=== PATIENT | male | born 1965 | race Caucasian/White ===

== ENCOUNTER 2021-04-07 23:23 | Observation (INO) | payer SELFPAY ==
[2021-04-08] MEDS ORDERED: Nitroglycerin 2% Ointment 1 INCH/1 GM Packet ONE (00:05)
[2021-04-08 00:18] LABS: #Eosinphils 0.2 10x3/uL (0.0-0.5); #Monocytes 0.4 10x3/uL (0.0-1.1); #Neutrophils 2.9 10x3/uL (1.5-8.4); %Basophils 0.2 % (0.0-2.0); %Eosinophils 3.1 % (0.0-6.0); %Lymphocytes 32.4 % (18.0-47.0); %Monocytes 7.6 % (0.0-10.0); %Neutrophils 55.5 % (40.0-75.0); Hemoglobin 12.8 g/dL (13.5-17.5); Mean Corpuscular HGB CONC 33.4 g/dL (32.0-36.0); Mean Corpuscular Hemoglobin 30.2 pg (27.0-33.0); Mean Corpuscular Volume 90.3 fl (81.2-95.1); Mean Platelet Volume 10.9 fl (7.4-10.4); Platelet Count 142 10x3/uL (150-450); RBC Distribution Width 14.8 % (11.5-14.5); Red Blood Cell (RBC) Count 4.24 10x6/uL (4.32-5.72); White Blood Cell (WBC) Count 5.2 10x3/uL (3.5-10.5)
[2021-04-08 00:22] LABS: ALT (SGPT) 22 U/L (8-55); AST (SGOT) 17 U/L (5-34); Albumin 4.2 g/dL (3.5-5.0); Alkaline Phosphatase 59 U/L (40-110); Anion Gap 16 mmol/L (10-20); BUN (Urea Nitrogen) 13 mg/dL (8.4-25.7); Bilirubin, Total 0.6 mg/dL (0.2-1.2); Calc. Creatinine Clearance 0 mL/min (70-130); Calcium 9.3 mg/dL (7.8-10.44); Carbon Dioxide 21 mmol/L (22-29); Chloride 104 mmol/L (98-107); Globulin 2.8 g/dL (2.4-3.5); Potassium 4.4 mmol/L (3.5-5.1); Sodium 137 mmol/L (136-145)
[2021-04-08 00:34] LABS: Glucose 585 mg/dL (70-105)
[2021-04-08] MEDS ORDERED: Insulin Regular 300 UNITS/3 ML VIAL ONE (00:42)
[2021-04-08] MEDS ORDERED: Morphine 4 MG/ML VIAL ONE (00:42)
[2021-04-08] MEDS ORDERED: Acetaminophen 325 MG TAB PO PRN (01:32)
[2021-04-08] MEDS ORDERED: Nitroglycerin 0.4 MG TAB (25 Tab Bottle) SL PRN (01:32)
[2021-04-08] MEDS ORDERED: Calcium Carbonate 500 MG ChewTAB PO PRN (01:32)
[2021-04-08] MEDS ORDERED: Dextrose 5% in Water 1,000 ML IV PRN (01:32)
[2021-04-08] MEDS ORDERED: Dextrose 50% Abboject 50 ML SYRINGE SLOW IVP PRN (01:32)
[2021-04-08] MEDS ORDERED: HumaLOG 300 UNITS/3 ML VIAL SC PRN (01:32)
[2021-04-08] MEDS ORDERED: Zolpidem Tartrate 5 MG TAB PO PRN (01:32)
[2021-04-08] MEDS ORDERED: Ondansetron PF 4 MG/2 ML Vial IVP PRN (01:32)
[2021-04-08] MEDS ORDERED: Senokot S 8.6-50 MG TAB PO PRN (01:32)
[2021-04-08 03:24] VITALS: BMI 36.9
[2021-04-08] MEDS: HYDROcodone/Acetaminophen 5/325 mg Tablet PO PRN ×2 (04:49→09:09)
[2021-04-08 05:44] LABS: Cardiac Risk 3.3 (Less than 4.5)
[2021-04-08 05:50] LABS: Troponin I Less than 0.010 ng/mL (< 0.028)
[2021-04-08] MEDS ORDERED: metFORMIN 500 MG TAB PO SCH (08:00)
[2021-04-08] MEDS ORDERED: Carvedilol 6.25 MG TAB PO SCH (08:00)
[2021-04-08 08:36] LABS: Troponin I Less than 0.010 ng/mL (< 0.028)
[2021-04-08] MEDS ORDERED: Aspirin Chewable 81 MG TAB PO SCH (09:00)
[2021-04-08] MEDS ORDERED: Enoxaparin Sodium 40 MG/0.4 ML SYRINGE SC SCH (09:00)
[2021-04-08] MEDS ORDERED: Lisinopril 2.5 MG TAB PO SCH (09:00)
[2021-04-08] MEDS ORDERED: Clopidogrel Bisulfate 75 MG TAB PO SCH (09:00)
[2021-04-08] MEDS ORDERED: Lantus 1000 UNITS/10 ML VIAL SC SCH (09:00)
[2021-04-08 12:37] VITALS: BP 108/102; TEMP 97.1
[2021-04-08 14:25] LABS: Hemoglobin A1c 9.5 % (4.0-6.0)
[2021-04-08] MEDS ORDERED: Atorvastatin Calcium 40 MG TAB PO SCH (21:00)
== END 2021-04-08 14:00 | disposition left against medical advice (07) ==
LOC: CSHERS 23:23 → CSHTELE 04-08 02:27
PROVIDERS: ADMIT Student in an Organized Health Care Education/Training Program; ATTEND Student in an Organized Health Care Education/Training Program
DX: R07.2 Precordial pain (principal); E11.65 Type 2 diabetes mellitus with hyperglycemia; E11.22 Type 2 diabetes mellitus with diabetic chronic kidney disease; I13.10 Hypertensive heart and chronic kidney disease without heart failure, with stage 1 through stage 4 chronic kidney disease, or unspecified chronic kidney disease; N18.2 Chronic kidney disease, stage 2 (mild); Z95.5 Presence of coronary angioplasty implant and graft; E78.5 Hyperlipidemia, unspecified; G47.33 Obstructive sleep apnea (adult) (pediatric); Z85.71 Personal history of Hodgkin lymphoma; Z82.49 Family history of ischemic heart disease and other diseases of the circulatory system; Z53.29 Procedure and treatment not carried out because of patient's decision for other reasons; Z79.02 Long term (current) use of antithrombotics/antiplatelets; Z79.4 Long term (current) use of insulin; Z79.82 Long term (current) use of aspirin; Z79.899 Other long term (current) drug therapy; Z88.2 Allergy status to sulfonamides; Z88.8 Allergy status to other drugs, medicaments and biological substances
CPT/HCPCS: 36415; 36416; 71045; 80053; 80061; 83036; 83880; 84484; 85025; 85379; 93005; 93306; 94760; 96372; 96374; G0378; J1650; J1815; J2270

== ENCOUNTER 2021-04-08 23:29 | Observation (INO) | payer SELFPAY ==
[2021-04-08] MEDS ORDERED: Aspirin Chewable 81 MG TAB ONE (23:43)
[2021-04-08] MEDS ORDERED: Nitroglycerin 2% Ointment 1 INCH/1 GM Packet ONE (23:48)
[2021-04-08 23:55] LABS: #Eosinphils 0.2 10x3/uL (0.0-0.5); #Monocytes 0.6 10x3/uL (0.0-1.1); #Neutrophils 3.8 10x3/uL (1.5-8.4); %Basophils 0.2 % (0.0-2.0); %Eosinophils 2.6 % (0.0-6.0); %Lymphocytes 25.9 % (18.0-47.0); %Monocytes 9.1 % (0.0-10.0); %Neutrophils 61.7 % (40.0-75.0); Hemoglobin 12.9 g/dL (13.5-17.5); Mean Corpuscular HGB CONC 33.6 g/dL (32.0-36.0); Mean Corpuscular Hemoglobin 30.3 pg (27.0-33.0); Mean Corpuscular Volume 90.1 fl (81.2-95.1); Mean Platelet Volume 10.8 fl (7.4-10.4); Platelet Count 149 10x3/uL (150-450); RBC Distribution Width 14.7 % (11.5-14.5); Red Blood Cell (RBC) Count 4.26 10x6/uL (4.32-5.72); White Blood Cell (WBC) Count 6.2 10x3/uL (3.5-10.5)
[2021-04-09 00:14] LABS: ALT (SGPT) 22 U/L (8-55); AST (SGOT) 13 U/L (5-34); Albumin 4.2 g/dL (3.5-5.0); Alkaline Phosphatase 57 U/L (40-110); Anion Gap 16 mmol/L (10-20); BUN (Urea Nitrogen) 13 mg/dL (8.4-25.7); Bilirubin, Total 0.7 mg/dL (0.2-1.2); Calc. Creatinine Clearance 0 mL/min (70-130); Calcium 9.2 mg/dL (7.8-10.44); Carbon Dioxide 22 mmol/L (22-29); Chloride 103 mmol/L (98-107); Globulin 2.5 g/dL (2.4-3.5); Glucose 520 mg/dL (70-105); Protein, Total 6.7 g/dL (6.0-8.3); Sodium 137 mmol/L (136-145)
[2021-04-09] MEDS ORDERED: Enoxaparin Sodium 100 MG/ML SYRINGE ONE (00:15)
[2021-04-09] MEDS ORDERED: Morphine 4 MG/ML VIAL ONE (00:15)
[2021-04-09] MEDS ORDERED: Enoxaparin Sodium 30 MG/0.3 ML SYRINGE ONE (00:17)
[2021-04-09] MEDS ORDERED: Insulin Regular 300 UNITS/3 ML VIAL ONE (00:33)
[2021-04-09] MEDS ORDERED: Dextrose 50% Abboject 50 ML SYRINGE SLOW IVP PRN (00:37)
[2021-04-09] MEDS ORDERED: Zolpidem Tartrate 5 MG TAB PO PRN (00:37)
[2021-04-09] MEDS ORDERED: Calcium Carbonate 500 MG ChewTAB PO PRN (00:37)
[2021-04-09] MEDS ORDERED: HYDROcodone/Acetaminophen 5/325 mg Tablet PO PRN (00:37)
[2021-04-09] MEDS ORDERED: Guaifenesin DM 100-10/5 ML UDCUP PO PRN (00:37)
[2021-04-09] MEDS ORDERED: Ondansetron PF 4 MG/2 ML Vial IVP PRN (00:37)
[2021-04-09] MEDS ORDERED: HumaLOG 300 UNITS/3 ML VIAL SC PRN (00:37)
[2021-04-09] MEDS ORDERED: Dextrose 5% in Water 1,000 ML IV PRN (00:37)
[2021-04-09] MEDS ORDERED: Acetaminophen 325 MG TAB PO PRN (00:37)
[2021-04-09] MEDS ORDERED: Senokot S 8.6-50 MG TAB PO PRN (00:37)
[2021-04-09] MEDS ORDERED: Sodium Chloride 0.9% 1,000 ML IV SCH (02:00)
[2021-04-09 04:36] LABS: Anion Gap 14 mmol/L (10-20); BUN (Urea Nitrogen) 12 mg/dL (8.4-25.7); Calc. Creatinine Clearance 0 mL/min (70-130); Carbon Dioxide 23 mmol/L (22-29); Chloride 104 mmol/L (98-107); Glucose 454 mg/dL (70-105); Potassium 4.1 mmol/L (3.5-5.1); Sodium 137 mmol/L (136-145)
[2021-04-09 05:12] VITALS: BMI 36.9
[2021-04-09] MEDS: Nitroglycerin 0.4 MG TAB (25 Tab Bottle) SL PRN ×3 (05:25→05:35)
[2021-04-09] MEDS ORDERED: metFORMIN 500 MG TAB PO SCH (08:00)
[2021-04-09] MEDS ORDERED: Communication Order-Pharmacy FS SCH (08:00)
[2021-04-09] MEDS: Clopidogrel Bisulfate 75 MG TAB PO SCH (08:39)
[2021-04-09] MEDS: Metoprolol Tartrate 25 MG TAB PO SCH ×2 (08:42→20:49)
[2021-04-09] MEDS: Aspirin Chewable 81 MG TAB PO SCH (08:42)
[2021-04-09] MEDS: Famotidine/PF 20 mg/2ml Vial SLOW IVP SCH ×2 (08:42→20:49)
[2021-04-09] MEDS: Lisinopril 5 MG TAB PO SCH (08:42)
[2021-04-09 08:43] LABS: #Eosinphils 0.1 10x3/uL (0.0-0.5); #Monocytes 0.5 10x3/uL (0.0-1.1); #Neutrophils 2.4 10x3/uL (1.5-8.4); %Basophils 0.2 % (0.0-2.0); %Lymphocytes 34.3 % (18.0-47.0); %Monocytes 10.1 % (0.0-10.0); Hemoglobin 11.6 g/dL (13.5-17.5); Mean Corpuscular Hemoglobin 30.5 pg (27.0-33.0); Mean Corpuscular Volume 89.7 fl (81.2-95.1); Mean Platelet Volume 10.5 fl (7.4-10.4); Platelet Count 137 10x3/uL (150-450); RBC Distribution Width 14.6 % (11.5-14.5); White Blood Cell (WBC) Count 4.6 10x3/uL (3.5-10.5)
[2021-04-09 08:52] LABS: PTT 27.6 sec (22.0-33.0)
[2021-04-09] MEDS ORDERED: Lantus 1000 UNITS/10 ML VIAL SC SCH (09:00)
[2021-04-09] MEDS ORDERED: Heparin 10,000 UNITS/ 10 ML VIAL ONE (11:10)
[2021-04-09] MEDS ORDERED: Nitroglycerin 50 MG/250 ML BOT 250 ML ONE (11:10)
[2021-04-09] MEDS ORDERED: Verapamil 5 MG/2 ML VIAL ONE (11:11)
[2021-04-09] MEDS ORDERED: Adenosine 6 MG/2 ML VIAL ONE (11:11)
[2021-04-09] MEDS ORDERED: Bivalirudin 250 MG VIAL ONE (11:12)
[2021-04-09] MEDS ORDERED: Sodium Chloride 0.9% 1,000 ML ONE (11:12)
[2021-04-09] MEDS ORDERED: Lidocaine 1% PF 5 ML VIAL ONE (11:25)
[2021-04-09] MEDS ORDERED: Fentanyl 100 MCG/2 ML VIAL ONE ×2 (11:29→11:54)
[2021-04-09] MEDS ORDERED: Midazolam HCl 2 mg/2 ml Vial ONE ×2 (11:29→11:54)
[2021-04-09 11:56] LABS: Troponin I Less than 0.010 ng/mL (< 0.028)
[2021-04-09] MEDS ORDERED: Acetaminophen/Codeine 30-300mg Tablet PO PRN ×2 (12:24)
[2021-04-09] MEDS ORDERED: Sodium Chloride 0.9% 200 ML IV PRN (12:24)
[2021-04-09] MEDS ORDERED: Nitroglycerin 0.4 MG TAB (25 Tab Bottle) SL PRN (12:24)
[2021-04-09] MEDS: HumaLOG 300 UNITS/3 ML VIAL SC SCH ×2 (17:04→20:49)
[2021-04-09] MEDS ORDERED: Enoxaparin Sodium 40 MG/0.4 ML SYRINGE SC SCH (21:00)
[2021-04-09] MEDS ORDERED: Atorvastatin Calcium 40 MG TAB PO SCH (21:00)
[2021-04-10 04:52] LABS: Cardiac Risk 4.1 (Less than 4.5)
[2021-04-10] MEDS: Lisinopril 5 MG TAB PO SCH (09:52)
[2021-04-10] MEDS: Metoprolol Tartrate 25 MG TAB PO SCH (09:52)
[2021-04-10] MEDS: Famotidine/PF 20 mg/2ml Vial SLOW IVP SCH ×2 (09:52→13:50)
[2021-04-10] MEDS: Aspirin Chewable 81 MG TAB PO SCH (09:52)
[2021-04-10] MEDS: Clopidogrel Bisulfate 75 MG TAB PO SCH (09:52)
[2021-04-10] MEDS: HumaLOG 300 UNITS/3 ML VIAL SC SCH (09:54)
[2021-04-10 13:52] VITALS: BP 141/78; TEMP 97.1
== END 2021-04-10 13:53 | disposition home or self-care (01) ==
LOC: CSHERS 23:29 → CSHTELE 23:30
PROVIDERS: ADMIT Student in an Organized Health Care Education/Training Program; ATTEND Family Medicine
DX: R07.9 Chest pain, unspecified (principal); I25.110 Atherosclerotic heart disease of native coronary artery with unstable angina pectoris; G47.33 Obstructive sleep apnea (adult) (pediatric); E11.22 Type 2 diabetes mellitus with diabetic chronic kidney disease; I12.9 Hypertensive chronic kidney disease with stage 1 through stage 4 chronic kidney disease, or unspecified chronic kidney disease; N18.2 Chronic kidney disease, stage 2 (mild); Z95.5 Presence of coronary angioplasty implant and graft; E66.01 Morbid (severe) obesity due to excess calories; E11.65 Type 2 diabetes mellitus with hyperglycemia; Z79.899 Other long term (current) drug therapy; I45.10 Unspecified right bundle-branch block; Z85.71 Personal history of Hodgkin lymphoma
CPT/HCPCS: 36415; 36416; 71045; 80048; 80053; 80061; 84484; 85025; 85610; 85730; 93005; 93458; 94660; 96372; 96374; 96375; 96376; 99152; G0378; J0153; J0583; J1644; J1650; J1815; J2250; J2270; J3010; J7050; S0028

== ENCOUNTER 2021-04-16 15:47 | Observation (INO) | payer OTHER, SELFPAY ==
[2021-04-16 16:03] VITALS: BMI 38.0
[2021-04-16] MEDS ORDERED: Nitroglycerin 0.4 MG TAB (25 Tab Bottle) SL PRN (19:11)
[2021-04-16] MEDS ORDERED: Dextrose 5% in Water 1,000 ML IV PRN (19:12)
[2021-04-16] MEDS ORDERED: Dextrose 50% Abboject 50 ML SYRINGE SLOW IVP PRN (19:12)
[2021-04-16] MEDS: HumaLOG 300 UNITS/3 ML VIAL SC PRN (19:52)
[2021-04-16] MEDS ORDERED: Atorvastatin Calcium 20 MG TAB PO SCH (21:00)
[2021-04-16] MEDS ORDERED: Diazepam 2 MG TAB PO SCH (21:00)
[2021-04-16] MEDS ORDERED: QUETIAPINE FUMARATE 400 MG PO SCH (21:00)
[2021-04-16] MEDS ORDERED: Diazepam 5 MG TAB PO SCH (21:00)
[2021-04-16] MEDS: Divalproex Sodium DR 500 MG TAB PO SCH (21:31)
[2021-04-17] MEDS: HumaLOG 300 UNITS/3 ML VIAL SC PRN ×2 (05:43→12:27)
[2021-04-17] MEDS: Divalproex Sodium DR 500 MG TAB PO SCH (08:32)
[2021-04-17] MEDS ORDERED: Aspirin Chewable 81 MG TAB PO SCH (09:00)
[2021-04-17] MEDS ORDERED: Lisinopril 5 MG TAB PO SCH (09:00)
[2021-04-17] MEDS ORDERED: Bupropion 100 MG SR TAB PO SCH (09:00)
[2021-04-17] MEDS ORDERED: Furosemide 40 MG TAB PO SCH (09:00)
[2021-04-17] MEDS ORDERED: FLUoxetine HCl 20 MG CAP PO SCH (09:00)
[2021-04-17] MEDS ORDERED: Pantoprazole 40 MG VIAL IVP SCH (09:00)
[2021-04-17 12:26] VITALS: BP 115/55; TEMP 97.6
== END 2021-04-17 13:35 | disposition home or self-care (01) ==
LOC: CSHTELE 15:47
PROVIDERS: ADMIT Family Medicine; ATTEND Internal Medicine
DX: R07.89 Other chest pain (principal); I10 Essential (primary) hypertension; E66.9 Obesity, unspecified; Z79.899 Other long term (current) drug therapy; G47.33 Obstructive sleep apnea (adult) (pediatric); E11.9 Type 2 diabetes mellitus without complications; F32.A Depression, unspecified; E78.5 Hyperlipidemia, unspecified
CPT/HCPCS: 36416; 94660; C9113; G0378; J1815

== ENCOUNTER 2021-05-11 23:04 | Emergency (ER) | payer OTHER ==
[2021-05-12 00:39] LABS: #Eosinphils 0.1 10x3/uL (0.0-0.5); #Monocytes 0.5 10x3/uL (0.0-1.1); %Basophils 0.4 % (0.0-2.0); %Eosinophils 2.1 % (0.0-6.0); %Lymphocytes 31.8 % (18.0-47.0); %Neutrophils 56.3 % (40.0-75.0); Hemoglobin 12.5 g/dL (13.5-17.5); Mean Corpuscular HGB CONC 34.1 g/dL (32.0-36.0); Mean Corpuscular Hemoglobin 30.3 pg (27.0-33.0); Mean Corpuscular Volume 88.9 fl (81.2-95.1); Mean Platelet Volume 10.7 fl (7.4-10.4); Platelet Count 150 10x3/uL (150-450); RBC Distribution Width 14.6 % (11.5-14.5); Red Blood Cell (RBC) Count 4.13 10x6/uL (4.32-5.72); White Blood Cell (WBC) Count 5.3 10x3/uL (3.5-10.5)
[2021-05-12 00:46] LABS: ALT (SGPT) 13 U/L (8-55); AST (SGOT) 9 U/L (5-34); Albumin 4.2 g/dL (3.5-5.0); Alkaline Phosphatase 57 U/L (40-110); Anion Gap 15 mmol/L (10-20); BUN (Urea Nitrogen) 19 mg/dL (8.4-25.7); Bilirubin, Total 0.7 mg/dL (0.2-1.2); Calc. Creatinine Clearance 0 mL/min (70-130); Calcium 9.4 mg/dL (7.8-10.44); Carbon Dioxide 26 mmol/L (22-29); Chloride 100 mmol/L (98-107); Globulin 2.5 g/dL (2.4-3.5); Potassium 4.6 mmol/L (3.5-5.1); Protein, Total 6.7 g/dL (6.0-8.3); Sodium 136 mmol/L (136-145)
[2021-05-12 00:52] LABS: Glucose 585 mg/dL (70-105)
[2021-05-12] MEDS ORDERED: Nitroglycerin 2% Ointment 1 INCH/1 GM Packet ONE (00:53)
[2021-05-12] MEDS ORDERED: Aspirin Chewable 81 MG TAB ONE (00:53)
[2021-05-12 02:51] LABS: Troponin I Less than 0.010 ng/mL (< 0.028)
== END 2021-05-12 03:08 | disposition home or self-care (01) ==
LOC: CSHERS 23:04
DX: R07.9 Chest pain, unspecified (principal); I25.10 Atherosclerotic heart disease of native coronary artery without angina pectoris; E11.9 Type 2 diabetes mellitus without complications; I10 Essential (primary) hypertension; E78.5 Hyperlipidemia, unspecified
CPT/HCPCS: 36415; 71045; 80053; 84484; 85025; 93005

== ENCOUNTER 2021-10-03 00:33 | Emergency (ER) | payer BC ==
[2021-10-03] MEDS ORDERED: Aspirin Chewable 81 MG TAB ONE (01:07)
[2021-10-03] MEDS ORDERED: Acetaminophen 500 MG TAB ONE (01:08)
[2021-10-03] MEDS ORDERED: Ketorolac Tromethamine 30 MG/ML VIAL ONE ×2 (01:08→01:34)
[2021-10-03] MEDS ORDERED: Nitroglycerin 2% Ointment 1 INCH/1 GM Packet TOP SCH (01:15)
[2021-10-03 01:54] LABS: #Eosinphils 0.2 10x3/uL (0.0-0.5); #Monocytes 0.5 10x3/uL (0.0-1.1); #Neutrophils 3.4 10x3/uL (1.5-8.4); %Basophils 0.2 % (0.0-2.0); %Eosinophils 3.1 % (0.0-6.0); %Lymphocytes 29.2 % (18.0-47.0); %Monocytes 8.4 % (0.0-10.0); %Neutrophils 58.6 % (40.0-75.0); Hemoglobin 12.1 g/dL (13.5-17.5); Mean Corpuscular HGB CONC 34.9 g/dL (32.0-36.0); Mean Corpuscular Hemoglobin 30.4 pg (27.0-33.0); Mean Corpuscular Volume 87.2 fl (81.2-95.1); Mean Platelet Volume 10.3 fl (7.4-10.4); Platelet Count 149 10x3/uL (150-450); RBC Distribution Width 14.4 % (11.5-14.5); Red Blood Cell (RBC) Count 3.98 10x6/uL (4.32-5.72); White Blood Cell (WBC) Count 5.9 10x3/uL (3.5-10.5)
[2021-10-03 02:01] LABS: ALT (SGPT) 14 U/L (8-55); AST (SGOT) 11 U/L (5-34); Alkaline Phosphatase 53 U/L (40-110); Anion Gap 17 mmol/L (10-20); BUN (Urea Nitrogen) 16 mg/dL (8.4-25.7); Bilirubin, Total 0.5 mg/dL (0.2-1.2); Calc. Creatinine Clearance 0 mL/min (70-130); Calcium 9.5 mg/dL (7.8-10.44); Carbon Dioxide 23 mmol/L (22-29); Chloride 101 mmol/L (98-107); Globulin 2.6 g/dL (2.4-3.5); Glucose 386 mg/dL (70-105); Protein, Total 6.6 g/dL (6.0-8.3); Sodium 137 mmol/L (136-145)
[2021-10-03 05:35] LABS: Troponin I Less than 0.010 ng/mL (< 0.028)
== END 2021-10-03 05:54 | disposition home or self-care (01) ==
LOC: CSHERS 00:33
DX: R07.9 Chest pain, unspecified (principal); E11.9 Type 2 diabetes mellitus without complications; E78.5 Hyperlipidemia, unspecified; I10 Essential (primary) hypertension
CPT/HCPCS: 36415; 71045; 80053; 84484; 85025; 93005; 96372; J1885

== ENCOUNTER 2021-10-14 13:41 | Observation (INO) | payer BC ==
[2021-10-14] MEDS ORDERED: Morphine 2 MG/ML VIAL ONE (15:42)
[2021-10-14 15:46] LABS: Troponin I Less than 0.010 ng/mL (< 0.028)
[2021-10-14] MEDS ORDERED: Ondansetron PF 4 MG/2 ML Vial IVP PRN (15:56)
[2021-10-14] MEDS ORDERED: Senokot S 8.6-50 MG TAB PO PRN (15:56)
[2021-10-14] MEDS ORDERED: Ondansetron ODT 4 MG TAB PO PRN (15:56)
[2021-10-14] MEDS ORDERED: Nitroglycerin 0.4 MG TAB (25 Tab Bottle) SL PRN (16:02)
[2021-10-14 16:30] VITALS: BMI 288.2
[2021-10-14] MEDS ORDERED: Communication Order-Pharmacy FS SCH (16:30)
[2021-10-14] MEDS ORDERED: Dextrose 5% in Water 1,000 ML IV PRN (16:59)
[2021-10-14] MEDS ORDERED: Dextrose 50% Abboject 50 ML SYRINGE SLOW IVP PRN (16:59)
[2021-10-14] MEDS ORDERED: HumaLOG 300 UNITS/3 ML VIAL SC PRN ×2 (16:59)
[2021-10-14 19:03] LABS: Troponin I Less than 0.010 ng/mL (< 0.028)
[2021-10-14] MEDS: Morphine 2 MG/ML VIAL SLOW IVP PRN ×2 (19:26→23:35)
[2021-10-14] MEDS ORDERED: Atorvastatin Calcium 40 MG TAB PO SCH (21:00)
[2021-10-14 22:07] LABS: Troponin I Less than 0.010 ng/mL (< 0.028)
[2021-10-15] MEDS: Morphine 2 MG/ML VIAL SLOW IVP PRN (04:13)
[2021-10-15 05:02] LABS: ALT (SGPT) 9 U/L (8-55); AST (SGOT) 8 U/L (5-34); Albumin 3.8 g/dL (3.5-5.0); Alkaline Phosphatase 56 U/L (40-110); Anion Gap 15 mmol/L (10-20); BUN (Urea Nitrogen) 12 mg/dL (8.4-25.7); Bilirubin, Total 0.8 mg/dL (0.2-1.2); Calc. Creatinine Clearance 1603 mL/min (70-130); Calcium 9.3 mg/dL (7.8-10.44); Carbon Dioxide 23 mmol/L (22-29); Cardiac Risk 6.4 (Less than 4.5); Chloride 104 mmol/L (98-107); Cholesterol 187 mg/dl (< 200 Desired); Globulin 2.6 g/dL (2.4-3.5); Glucose 259 mg/dL (70-105); HDL Cholesterol 29 mg/dL (>60 Neg Risk); LDL Cholesterol, Calculated 110 mg/dL; Potassium 4.2 mmol/L (3.5-5.1); Protein, Total 6.4 g/dL (6.0-8.3); Sodium 138 mmol/L (136-145); Triglycerides 241 mg/dL (Less than 150)
[2021-10-15 05:10] LABS: INR-International Normal Ratio 0.9; PTT 25.4 sec (22.0-33.0); Prothrombin Time 10.2 sec (9.5-12.1)
[2021-10-15 05:29] LABS: #Eosinphils 0.2 10x3/uL (0.0-0.5); #Monocytes 0.7 10x3/uL (0.0-1.1); #Neutrophils 4.7 10x3/uL (1.5-8.4); %Basophils 0.2 % (0.0-2.0); %Eosinophils 2.6 % (0.0-6.0); %Lymphocytes 14.9 % (18.0-47.0); %Monocytes 10.1 % (0.0-10.0); %Neutrophils 71.7 % (40.0-75.0); Hemoglobin 12.6 g/dL (13.5-17.5); Mean Corpuscular Hemoglobin 30.1 pg (27.0-33.0); Mean Corpuscular Volume 86.1 fl (81.2-95.1); Mean Platelet Volume 10.2 fl (7.4-10.4); Platelet Count 143 10x3/uL (150-450); RBC Distribution Width 14.3 % (11.5-14.5); Red Blood Cell (RBC) Count 4.18 10x6/uL (4.32-5.72); White Blood Cell (WBC) Count 6.6 10x3/uL (3.5-10.5)
[2021-10-15] MEDS ORDERED: Sodium Chloride 0.9% 1,000 ML IV SCH (06:00)
[2021-10-15] MEDS ORDERED: Aspirin 81 mg Enteric Coated Tablet PO SCH ×2 (06:00→09:00)
[2021-10-15] MEDS ORDERED: Lisinopril 5 MG TAB PO SCH ×2 (06:00→09:00)
[2021-10-15] MEDS ORDERED: Lidocaine 1% MPF 2 ML VIAL ONE (08:57)
[2021-10-15] MEDS ORDERED: Heparin 10,000 UNITS/ 10 ML VIAL ONE (08:57)
[2021-10-15] MEDS ORDERED: Nitroglycerin 50 MG/250 ML BOT 250 ML ONE (08:57)
[2021-10-15] MEDS ORDERED: Adenosine 6 MG/2 ML VIAL ONE (08:58)
[2021-10-15] MEDS ORDERED: Verapamil 5 MG/2 ML VIAL ONE (08:58)
[2021-10-15] MEDS ORDERED: Fentanyl 100 MCG/2 ML VIAL ONE (08:59)
[2021-10-15] MEDS ORDERED: Midazolam HCl 2 mg/2 ml Vial ONE (08:59)
[2021-10-15] MEDS ORDERED: Nitroglycerin 0.4 MG TAB (25 Tab Bottle) SL PRN (10:07)
[2021-10-15] MEDS ORDERED: Sodium Chloride 0.9% 200 ML IV PRN (10:07)
[2021-10-15] MEDS ORDERED: Acetaminophen/Codeine 30-300mg Tablet PO PRN ×2 (10:07)
[2021-10-15] MEDS ORDERED: Iopamidol 300 61% 100 ML VIAL FS ONE (12:00)
[2021-10-15 12:08] VITALS: BP 106/53; TEMP 97.7
[2021-10-15 12:42] LABS: Hemoglobin A1c 8.7 % (4.0-6.0)
[2021-10-15] MEDS ORDERED: HumuLIN 70/30 (300 UNITS/3 ML VIAL) SC SCH (16:30)
[2021-10-15] MEDS ORDERED: Famotidine 20 MG TAB PO SCH (21:00)
[2021-10-16] MEDS ORDERED: Aspirin 81 mg Enteric Coated Tablet PO SCH ×2 (09:00)
[2021-10-16] MEDS ORDERED: Aspirin Chewable 81 MG TAB PO SCH (09:00)
[2021-10-16] MEDS ORDERED: Fluticasone Propionate Nasal Spray 16 gm Bottle NASAL SCH (09:00)
[2021-10-16] MEDS ORDERED: Fenofibrate 48 MG TAB PO SCH (09:00)
[2021-10-16] MEDS ORDERED: Atorvastatin Calcium 40 MG TAB PO SCH (09:00)
[2021-10-16] MEDS ORDERED: Lisinopril 5 MG TAB PO SCH ×3 (09:00)
== END 2021-10-15 13:38 | disposition home or self-care (01) ==
LOC: CSHERS 13:41 → INTOOBSV 16:15 → CSHTELE 16:15
PROVIDERS: ADMIT Internal Medicine; ATTEND Internal Medicine
PROC: 4A023N7 Measurement of Cardiac Sampling and Pressure, Left Heart, Percutaneous Approach (ICD-10-PCS; principal; 2021-10-15)
PROC: B2111ZZ Fluoroscopy of Multiple Coronary Arteries using Low Osmolar Contrast (ICD-10-PCS; 2021-10-15)
DX: R07.9 Chest pain, unspecified (principal); I10 Essential (primary) hypertension; E11.42 Type 2 diabetes mellitus with diabetic polyneuropathy; E78.5 Hyperlipidemia, unspecified; D64.9 Anemia, unspecified; D69.6 Thrombocytopenia, unspecified; G47.33 Obstructive sleep apnea (adult) (pediatric); I25.10 Atherosclerotic heart disease of native coronary artery without angina pectoris; I45.10 Unspecified right bundle-branch block; K21.9 Gastro-esophageal reflux disease without esophagitis; E66.01 Morbid (severe) obesity due to excess calories; Z86.73 Personal history of transient ischemic attack (TIA), and cerebral infarction without residual deficits; Z79.4 Long term (current) use of insulin; Z79.82 Long term (current) use of aspirin; Z79.84 Long term (current) use of oral hypoglycemic drugs; Z79.899 Other long term (current) drug therapy; Z88.2 Allergy status to sulfonamides; Z88.8 Allergy status to other drugs, medicaments and biological substances; Z91.013 Allergy to seafood; Z95.5 Presence of coronary angioplasty implant and graft; Z20.822 Contact with and (suspected) exposure to COVID-19
CPT/HCPCS: 36416; 80053; 80061; 83036; 84443; 85025; 85610; 85730; 93005; 93458; 94660; 94760; 96374; 96376; 99152; C1769; C1894; G0378; J0153; J1644; J1815; J2250; J2270; J3010; J7050; Q9967; U0003; U0005